=== PATIENT | female | born 1990 | race African-American/Black ===

== ENCOUNTER → 2018-12-27 | Outpatient (CLI) | payer OTHER ==
--- NOTE | 2018-12-27 15:46 | KCIC ---
MR of the right knee HISTORY: Right knee pain, unspecified chronicity. TECHNIQUE: Routine multiplanar sequences are obtained. FINDINGS: No evidence of medial meniscal tear. No evidence of lateral meniscal tear. Anterior and posterior cruciate ligaments are intact. Medial collateral ligament is intact. Iliotibial band unremarkable. Fibular collateral ligament, biceps femoris tendon and popliteus tendon are intact. Patellar tendon and quadriceps tendon are intact. No evidence of acute retinacular disruption. No significant joint effusion. No evidence of acute articular cartilage defect. No acute fracture. No aggressive bone destruction. Small Mitchell's cyst. IMPRESSION: No evidence of acute abnormality or internal derangement. Electronically signed by: Balta Spencer MD (12/27/2018 3:43 PM) [id number]
== END | disposition home or self-care (01) ==
LOC: KCIC MRI 13:51
PROVIDERS: ATTEND Orthopaedic Surgery
DX: M71.21 Synovial cyst of popliteal space [Baker], right knee (principal)
CPT/HCPCS: 73721